=== PATIENT | male | born 1965 | race Caucasian/White ===

== ENCOUNTER 2018-12-10 16:03 | Emergency (ER) | payer SELFPAY ==
[~2018-12-10] VITALS: Ht 177.8 cm; Wt 77.1 kg
[2018-12-10 16:03] VITALS: BP 115/74
[2018-12-10] MEDS ORDERED: TDAP [DIPH/PERTUSSIS/TET] 0.5 ML VIAL IM ONE ×2 (17:00→17:39)
== END 2018-12-10 17:47 | disposition home or self-care (01) ==
LOC: ER 16:08
DX: S81.812A Laceration without foreign body, left lower leg, initial encounter (principal); Z98.890 Other specified postprocedural states; W18.39XA Other fall on same level, initial encounter; Y93.89 Activity, other specified; Y92.89 Other specified places as the place of occurrence of the external cause; Y99.8 Other external cause status
CPT/HCPCS: 12001; 90471; 90715; 99283; A6403